=== PATIENT | male | born 1970 | race Caucasian/White ===

== ENCOUNTER 2019-09-18 23:11 | Emergency (ER) | payer MEDICAID ==
[~2019-09-18] VITALS: Ht 180.3 cm; Wt 61.0 kg
[2019-09-18 23:28] VITALS: BP 135/84
[2019-09-19 00:10] LABS: BASOPHILS # (AUTO) 0.06 x10^3/uL (0-0.1); BASOPHILS % (AUTO) 1 % (0-1); EOSINOPHILS # (AUTO) 0.19 x10^3/uL (0-0.4); EOSINOPHILS % (AUTO) 2 % (1-7); LYMPHOCYTES # (AUTO) 2.35 x10^3/uL (1-3.4); LYMPHOCYTES % (AUTO) 28 % (22-44); MD NO; MEAN CORPUSCULAR HEMOGLOBIN 29.4 pg (27.5-34.5); MEAN CORPUSCULAR HGB CONC 33.3 g/dL (33.2-36.2); MEAN CORPUSCULAR VOLUME 88.1 fL (81-97); MEAN PLATELET VOLUME 7.6 fL (7.4-10.4); MONOCYTES % (AUTO) 10 % (2-9); NEUTROPHILS # (AUTO) 5.04 x10^3/uL (1.8-6.8); NEUTROPHILS % (AUTO) 60 % (42-75); PLATELET COUNT 331 x10^3/uL (130-400); RED BLOOD COUNT 4.49 x10^6/uL (4.38-5.82); RED CELL DISTRIBUTION WIDTH 14.8 % (9.4-14.8)
[2019-09-19 00:15] LABS: ALANINE AMINOTRANSFERASE 36 U/L (12-78); ALBUMIN 3.3 g/dL (3.4-5.0); ANION GAP 4 mmol/L (5-15); CALCIUM 8.4 mg/dL (8.5-10.1); CHLORIDE 106 mmol/L (98-107); CREATININE 1.04 mg/dL (0.7-1.3); SALICYLATE LEVEL 3.1 mg/dL (2.8-20.0)
[2019-09-19 00:17] LABS: ALKALINE PHOSPHATASE 72 U/L (45-117); BILIRUBIN,TOTAL 0.2 mg/dL (0.2-1.0); TOTAL PROTEIN 6.4 g/dL (6.4-8.2)
[2019-09-19 02:11] LABS: AMPHETAMINE SCREEN, URINE Negative (Negative); BARBITURATE SCREEN, URINE Negative (Negative); BENZODIAZEPINE SCREEN, URINE Negative (Negative); CANNABINOID SCREEN, URINE Positive (Negative); COCAINE SCREEN, URINE Negative (Negative); METHADONE SCREEN, URINE Negative (Negative); OPIATE SCREEN, URINE Negative (Negative)
== END 2019-09-19 02:22 | disposition home or self-care (01) ==
LOC: ED 09-19 02:00
DX: F20.0 Paranoid schizophrenia (principal); F15.10 Other stimulant abuse, uncomplicated; F17.200 Nicotine dependence, unspecified, uncomplicated
CPT/HCPCS: 36415; 80053; 80307; 85025; 99283

== ENCOUNTER → 2019-11-23 | Emergency (ER) | payer MEDICAID ==
[~2019-11-23] VITALS: Ht 177.8 cm; Wt 66.0 kg
--- NOTE | 2019-11-23 19:29 | NUR ---
THIS IS A 49 YO MALE BIB [facility]UAN MIGU[facility] FOR HAVING AUDITORY HALLUCINATIONS, PATIENT STATED "PEOPLE WERE TALKING SHIT ABOUT ME THERE AND IT MADE ME FEEL LIKE I NEED TO HURT SOMEONE". PATIENT HAS HX SCHIZOPHRENIA, NOT CURRENTLY TAKING MEDICATIONS. PATIENT WAS CALM AND COOPERATIVE WITH [facility] AND [employer], NOT CURRENTLY ON A LEGAL HOLD. VSMartha, JAMES AT THIS TIME. PATIENT IN LINE OF SIGHT OF THIS RN FOR SAFETY. DENIES SI, DIRECTED HI TOWARDS "THE PEOPLE TALKING SHIT AT THE HALF-WAY". CALL LIGHT IN REACH.
--- NOTE | 2019-11-23 19:35 | NUR ---
LAST METH USE 2 DAYS AGO, MARIJUANA USE 1 DAY AGO.
--- NOTE | 2019-11-23 19:59 | NUR ---
UA COLLECTED AND SENT TO LAB. PATIENT MOVED TO ROOM 2 WITH BELONGINGS FOR SAFETY.
--- NOTE | 2019-11-23 20:03 | NUR ---
REPORT GIVEN TO JOSÉ LUIS OLSON. PLAN OF CARE DISCUSSED
[2019-11-23 20:15] LABS: BASOPHILS # (AUTO) 0.05 x10^3/uL (0-0.1); BASOPHILS % (AUTO) 1 % (0-1); EOSINOPHILS # (AUTO) 0.15 x10^3/uL (0-0.4); EOSINOPHILS % (AUTO) 2 % (1-7); LYMPHOCYTES # (AUTO) 1.64 x10^3/uL (1-3.4); LYMPHOCYTES % (AUTO) 25 % (22-44); MD NO; MEAN CORPUSCULAR HEMOGLOBIN 29.4 pg (27.5-34.5); MEAN CORPUSCULAR HGB CONC 33.2 g/dL (33.2-36.2); MEAN CORPUSCULAR VOLUME 88.5 fL (81-97); MEAN PLATELET VOLUME 7.8 fL (7.4-10.4); MONOCYTES # (AUTO) 0.54 x10^3/uL (0.2-0.8); MONOCYTES % (AUTO) 8 % (2-9); NEUTROPHILS # (AUTO) 4.11 x10^3/uL (1.8-6.8); NEUTROPHILS % (AUTO) 63 % (42-75); PLATELET COUNT 288 x10^3/uL (130-400); RED BLOOD COUNT 4.49 x10^6/uL (4.38-5.82); RED CELL DISTRIBUTION WIDTH 13.4 % (9.4-14.8)
[2019-11-23 20:18] LABS: AMPHETAMINE SCREEN, URINE Positive (Negative); BARBITURATE SCREEN, URINE Negative (Negative); BENZODIAZEPINE SCREEN, URINE Negative (Negative); CANNABINOID SCREEN, URINE Positive (Negative); COCAINE SCREEN, URINE Negative (Negative); METHADONE SCREEN, URINE Negative (Negative); OPIATE SCREEN, URINE Negative (Negative)
--- NOTE | 2019-11-23 20:18 | NUR ---
PT PLACED IN GOWN. 3 BAGS OF BELONGINGS SECURED. ROOM RECURED AND CALL LIGHT IN REACH. SITTER IN VIEW OF PT.
[2019-11-23 20:22] LABS: ALBUMIN 3.3 g/dL (3.4-5.0); ANION GAP 5 mmol/L (5-15); CALCIUM 8.5 mg/dL (8.5-10.1); CHLORIDE 106 mmol/L (98-107)
[2019-11-23 20:23] LABS: CREATININE 1.03 mg/dL (0.7-1.3); SALICYLATE LEVEL 1.8 mg/dL (2.8-20.0)
--- NOTE | 2019-11-23 20:40 | NUR ---
PT EATING FOOD, CALM AND COOPERATIVE. SITTER OUTSIDE ROOM, ROOM SECURE.
--- NOTE | 2019-11-23 21:24 | NUR ---
THROUGHPUT RN: CALLED [facility], WILL CALL BACK WITH ADMIT DECISION.
--- NOTE | 2019-11-23 21:40 | NUR ---
NO CHANGE IN ASSESSMENT, PT RESTING, ATE FOOD, PO FLUIDS. CALM, COOPERATIVE, SITTER IN LINE OF SITE. SAFETY CHECKS UPDATED. WILL CONTINUE TO MONITOR.
--- NOTE | 2019-11-23 22:15 | NUR ---
THROUGHPUT RN: [facility] WILL ACCEPT PT IF STILL HERE AT 7AM.
--- NOTE | 2019-11-23 22:24 | NUR ---
THROUGHPUT RN: PACKET FAXED TO, [facility].
--- NOTE | 2019-11-23 22:39 | NUR ---
ELVIN RN: [facility] CALLED, DOES NOT HAVE ANY AVAILABLE BEDS.
--- NOTE | 2019-11-23 22:42 | NUR ---
NO CHANGE IN ASSESSMENT, RESTING, CALM, COOPERATIVE. NEEDS MET. SITTER IN LINE OF SITE.
--- NOTE | 2019-11-23 22:48 | NUR ---
Aristeo at [facility]: rejects Alexander Arce.
--- NOTE | 2019-11-24 01:12 | NUR ---
2342: SLEEPING, RR EQUAL AND UNLABORED. SITTER IN LINE OF SITE.
--- NOTE | 2019-11-24 01:35 | NUR ---
PT SLEEPING, RR EQUAL AND UNLABORED. ROOM SECURE, SITTER IN LINE OF SITE. ALL NEEDS MET.
--- NOTE | 2019-11-24 02:48 | NUR ---
PT SLEEPING, SITTER IN LINE OF SITE. ROOM SAFETY UPDATED. NEEDS MET. WILL CONTINUE TO MONITOR.
--- NOTE | 2019-11-24 03:55 | NUR ---
PT SLEEPING, WAKES UP WITH VERBAL COMMUNICATION. CALM, COOPERATIVE. VS UPDATED/STABLE. PROVIDED WATER/SNACKS/BATHROOM. SITTER IN LINE OF SITE. ROOM SAFETY UPDATED. WILL CONTINUE TO MONITOR.
--- NOTE | 2019-11-24 05:35 | NUR ---
SLEEPING, RR EQUAL AND UNLABORED. SITTER WITHIN LINE OF SITE. ROOM SAFETY UPDATED. WILL CONTINUE TO MONITOR.
--- NOTE | 2019-11-24 06:53 | NUR ---
REPORT TO MINH ORDONEZ
--- NOTE | 2019-11-24 06:56 | NUR ---
REPORT FROM WHITNEY STEARNS
--- NOTE | 2019-11-24 07:58 | NUR ---
THROUGHPUT RN: SPOKE W/ JOSÉ LUIS BROWN AT [facility] WHO STATES SHE WILL LOOK AT PT AGAIN THIS AM AND MAKE A DECISION FOR ADMISSION/DECLINATION.
[2019-11-24 08:15] VITALS: BP 117/61
--- NOTE | 2019-11-24 08:17 | NUR ---
PT GIVEN MEAL TRAY. PT STATES HE IS NOT SUICIDAL. JUST HEARS VOICES
--- NOTE | 2019-11-24 08:55 | NUR ---
THROUGHPUT RN: CALLED AND SPOKE W/ CLAUDY AT [facility] WHO STATES THEY REMAIN AT FULL CAPACITY. REQUESTING RE-FAX OF PACKET. PACKET RE-FAXED.
--- NOTE | 2019-11-24 09:34 | NUR ---
SELVIN ORDONEZ SPOKE W PT.
--- NOTE | 2019-11-24 11:21 | NUR ---
REPORT TO [facility]. PT READY FOR TRANSFER
== END ==
LOC: ED 21:10
DX: F15.10 Other stimulant abuse, uncomplicated (principal); F32.9 Major depressive disorder, single episode, unspecified; F12.10 Cannabis abuse, uncomplicated; F10.20 Alcohol dependence, uncomplicated; R45.850 Homicidal ideations; R44.0 Auditory hallucinations; Y90.0 Blood alcohol level of less than 20 mg/100 ml
CPT/HCPCS: 36415; 80048; 80307; 82040; 85025; 99283; 99284

== ENCOUNTER 2020-05-30 00:26 | Emergency (ER) | payer MEDICAID ==
[~2020-05-30] VITALS: Ht 177.8 cm; Wt 65.0 kg
[~2020-05-30 00:26] MED LIST: CLON0.1T22 PO; DIPH50CA PO; MIRT-34 PO; NICO-587 TD; PALI3TAB11 PO
--- NOTE | 2020-05-30 00:45 | NUR ---
Patient BIBA c/o SI and auditory hallucinations. Patient has a hx of schizophrenia and PTSD and is not on medications. Patient was brought in on a legal hold by JEAN PIERRE. Patient stated he wanted to kill himself by shooting himself in the head with a firearm or jump into traffic if he could not find a firearm. Patient is calm and cooperative and in NAD. Respirations even and unlabored. Room secured, belongings locked in cabinet. Sitter outside. Urine collected and sent to lab.
[2020-05-30 01:06] LABS: BASOPHILS % (AUTO) 1 % (0-1); EOSINOPHILS % (AUTO) 1 % (1-7); LYMPHOCYTES % (AUTO) 11 % (22-44); MEAN CORPUSCULAR HGB CONC 34.1 g/dL (33.2-36.2); MEAN PLATELET VOLUME 6.9 fL (7.4-10.4); MONOCYTES % (AUTO) 4 % (2-9); NEUTROPHILS % (AUTO) 83 % (42-75); PLATELET COUNT 306 x10^3/uL (130-400); RED BLOOD COUNT 4.67 x10^6/uL (4.38-5.82); RED CELL DISTRIBUTION WIDTH 14.1 % (9.4-14.8)
[2020-05-30 01:07] LABS: MD NO
[2020-05-30 01:17] LABS: ALBUMIN 3.6 g/dL (3.4-5.0); ANION GAP 7 mmol/L (5-15); CALCIUM 8.2 mg/dL (8.5-10.1); CHLORIDE 106 mmol/L (98-107); SALICYLATE LEVEL 2.6 mg/dL (2.8-20.0)
[2020-05-30 01:28] LABS: ALANINE AMINOTRANSFERASE 24 U/L (12-78); ALKALINE PHOSPHATASE 79 U/L (45-117); BILIRUBIN,TOTAL 0.3 mg/dL (0.2-1.0); CREATININE 0.99 mg/dL (0.7-1.3); TOTAL PROTEIN 6.9 g/dL (6.4-8.2)
--- NOTE | 2020-05-30 01:42 | NUR ---
TASK RN: PT RESTING ON YOSELYN NADN, PROVIDED SNACKS AND WATER, STILL UNABLE TO PROVIDE UA AT THIS TIME.
--- NOTE | 2020-05-30 02:40 | NUR ---
BEDSIDE REPORT RECEIVED FROM RUBEN RN, PT CARE TRANSFERRED AT THIS TIME. PT MOVED TO ROOM 1, THIS RN'S ASSIGNMENT, AND PLACED ON HOSPITAL BED, SITTER IN LINE OF SIGHT, ROOM SECURED. MIRTHA.
--- NOTE | 2020-05-30 03:10 | NUR ---
pt resting on hospital bed, nad, appears comfortable, eyes closed, lights off for comfort, even and unlabored repsirations, sitter in line of sight, room secured, wctm. L2K
[2020-05-30 03:14] LABS: AMPHETAMINE SCREEN, URINE Negative (Negative); BARBITURATE SCREEN, URINE Negative (Negative); BENZODIAZEPINE SCREEN, URINE Negative (Negative); CANNABINOID SCREEN, URINE Positive (Negative); COCAINE SCREEN, URINE Negative (Negative); METHADONE SCREEN, URINE Negative (Negative); OPIATE SCREEN, URINE Negative (Negative)
--- NOTE | 2020-05-30 04:38 | NUR ---
pt resting on hospital bed, nad, appears comfortable, room secured, sitter in line of sight, no other changes in condition, meal tray ordered, wctm. L2K
--- NOTE | 2020-05-30 05:29 | NUR ---
M1A1 TANK CREWMAN: PACKET FAXED TO [facility], [facility], [facility], AND [facility]. AWAITING CONFIRMATION FAX. [facility] UNTIL AT LEAST 11 AM.
--- NOTE | 2020-05-30 05:45 | NUR ---
Patricia from [facility] states they can only offer self pay options to patient.
--- NOTE | 2020-05-30 06:39 | NUR ---
pt resting on luis, kelvin, no change in condition, sitter in line of sight, room secured. wctm.
--- NOTE | 2020-05-30 06:40 | NUR ---
bedside report to Katie ORDONEZ, pt care transferred at this time.
--- NOTE | 2020-05-30 07:03 | NUR ---
BEDSIDE REPORT RECEIEVED FROM JOSÉ LUIS PORTILLO FOR TRANSFER OF PATIENT CARE. PATIENT RESTING IN BED WITH EYES CLOSED, RESP EVEN AND UNLABORED, SUICIDE PRECAUTIONS IN PLACE, SITTER IN DOORWAY.
--- NOTE | 2020-05-30 08:04 | NUR ---
PATIENT RESTING IN GURNEY, EYES CLOSED, RESP EVEN AND UNLABORED, SUICIDE PRECAUTIONS IN PLACE, SITTER IN DOORWAY.
--- NOTE | 2020-05-30 08:17 | NUR ---
BREAKFAST TRAY PROVIDED.
[2020-05-30 08:24] VITALS: BP 119/85
--- NOTE | 2020-05-30 09:15 | NUR ---
PATIENT STILL ENDORSING SI, STATES HIS PLAN IS TO "SHOOT MYSELF IN THE HEAD WITH A GUN." JAMES, SUICIDE PRECAUTIONS IN PLACE, SITTER IN DOORWAY.
--- NOTE | 2020-05-30 10:32 | NUR ---
PATIENT RESTING IN GURNEY WITH EYES CLOSED, RESP EVEN AND UNLABORED, SUICIDE PRECAUTIONS IN PLACE, SITTER IN LINE OF SIGHT, FREQUENT ROUNDING IN PLACE.
--- NOTE | 2020-05-30 11:23 | NUR ---
LUNCH TRAY ORDERED.
--- NOTE | 2020-05-30 11:57 | NUR ---
COVID SWAB COLLECTED AND WALKED TO LAB.
--- NOTE | 2020-05-30 12:20 | NUR ---
LUNCH TRAY PROVIDED TO PATIENT.
--- NOTE | 2020-05-30 12:53 | NUR ---
REPORT GIVEN TO JOSÉ LUIS ELIZABETH ON [facility] FOR TRANSFER OF PATIENT CARE.
--- NOTE | 2020-05-30 13:06 | NUR ---
PATIENT TRANSFERRED TO [facility] VIA WHEELCHAIR WITH HUMAN SERVICES PROFESSIONAL AND ALL PATIENT BELONGINGS TAKEN TO FLOOR.
== END 2020-05-30 13:07 ==
LOC: ED 01:18
DX: F12.10 Cannabis abuse, uncomplicated (principal); Z20.822 Contact with and (suspected) exposure to COVID-19; F32.1 Major depressive disorder, single episode, moderate; F20.9 Schizophrenia, unspecified; M54.5 Low back pain; Z72.9 Problem related to lifestyle, unspecified
CPT/HCPCS: 36415; 80053; 80143; 80179; 80307; 80320; 84443; 85025; 87426; 99285; G0480

== ENCOUNTER 2020-05-30 11:58 | Inpatient (IN) | payer MEDICAID ==
[~2020-05-30] VITALS: Ht 177.8 cm; Wt 60.7 kg
[2020-05-30] MEDS ORDERED: ONDANSETRON ODT 4 MG PO PRN (12:30)
[2020-05-30] MEDS ORDERED: NICOTINE 14MG/24 HR PATCH.TD24 TD SCH (12:30)
[2020-05-30] MEDS ORDERED: DOCUSATE 100 MG CAPSULE PO PRN (13:00)
[2020-05-30] MEDS ORDERED: POLYETHYLENE GLYCOL 17 GM PACKET PO PRN (13:00)
[2020-05-30 13:38] VITALS: BP 135/73
[2020-05-30 19:44] VITALS: BP 128/83
[2020-05-30 19:51] LABS: MICROSCOPIC NOT IND
[2020-05-30] MEDS: MIRTAZAPINE 15 MG TABLET PO SCH (20:10)
[2020-05-30] MEDS: DIPHENHYDRAMINE 50 MG CAPSULE PO PRN (20:10)
[2020-05-30] MEDS: ACETAMINOPHEN 325 MG TABLET PO PRN (20:10)
[2020-05-31 06:20] LABS: FREE T4 (FREE THYROXINE) 1.24 ng/dL (0.76-1.46); LDL/HDL RATIO 3.4 (0.5-3.0)
[2020-05-31] MEDS: NICOTINE 14MG/24 HR PATCH.TD24 TD SCH (08:11)
[2020-05-31] MEDS ORDERED: PALIPERIDONE 3 MG TAB.ER.24 PO SCH (09:00)
[2020-05-31 11:43] VITALS: BP 122/80
[2020-05-31] MEDS: DIPHENHYDRAMINE 50 MG CAPSULE PO PRN (18:15)
[2020-05-31 19:00] VITALS: BP 121/78
[2020-05-31] MEDS: MIRTAZAPINE 15 MG TABLET PO SCH (20:50)
[2020-06-01] MEDS: NICOTINE 14MG/24 HR PATCH.TD24 TD SCH (07:44)
[2020-06-01] MEDS: PALIPERIDONE 3 MG TAB.ER.24 PO SCH (07:44)
[2020-06-01 07:47] VITALS: BP 113/83
[2020-06-01] MEDS ORDERED: LORazepam 1MG TABLET ONE ×2 (14:07→14:10)
[2020-06-01] MEDS ORDERED: HALOPERIDOL 5 MG TABLET ONE (14:08)
[2020-06-01] MEDS: DIPHENHYDRAMINE 50 MG CAPSULE PO PRN (14:14)
[2020-06-01] MEDS: HALOPERIDOL 5 MG TABLET PO PRN (14:14)
[2020-06-01] MEDS ORDERED: LORazepam 1MG TABLET PO ONE (14:30)
[2020-06-01] MEDS: MIRTAZAPINE 15 MG TABLET PO SCH (21:00)
[2020-06-02 07:44] VITALS: BP 107/75
[2020-06-02] MEDS: NICOTINE 14MG/24 HR PATCH.TD24 TD SCH (08:20)
[2020-06-02] MEDS: PALIPERIDONE 3 MG TAB.ER.24 PO SCH (08:20)
[2020-06-02] MEDS: HALOPERIDOL 5 MG TABLET PO PRN ×2 (12:50→19:26)
[2020-06-02] MEDS ORDERED: ZIPRASIDONE 40MG CAPSULE ONE (15:51)
[2020-06-02] MEDS: ZIPRASIDONE 40MG CAPSULE PO SCH ×2 (16:51→20:24)
[2020-06-02 20:04] VITALS: BP 130/80
[2020-06-02] MEDS: MIRTAZAPINE 15 MG TABLET PO SCH (20:24)
[2020-06-02] MEDS ORDERED: ZIPRASIDONE 40MG CAPSULE PO SCH (21:00)
[2020-06-02] MEDS: CALCIUM CARBONATE 500 MG TAB.CHEW PO PRN (23:04)
[2020-06-03 07:51] VITALS: BP 113/72
[2020-06-03] MEDS: NICOTINE 14MG/24 HR PATCH.TD24 TD SCH (08:27)
[2020-06-03] MEDS: ZIPRASIDONE 40MG CAPSULE PO SCH (08:28)
[2020-06-03] MEDS ORDERED: PALIPERIDONE 3 MG TAB.ER.24 PO SCH (09:00)
[2020-06-03] MEDS: HALOPERIDOL 5 MG TABLET PO PRN ×2 (10:04→17:27)
[2020-06-03 19:30] VITALS: BP 115/70
[2020-06-03] MEDS: MIRTAZAPINE 15 MG TABLET PO SCH (20:26)
[2020-06-03] MEDS: ZIPRASIDONE 20MG CAPSULE PO SCH (20:26)
[2020-06-04 07:32] VITALS: BP 118/81
[2020-06-04] MEDS: NICOTINE 14MG/24 HR PATCH.TD24 TD SCH (08:37)
[2020-06-04] MEDS: ZIPRASIDONE 20MG CAPSULE PO SCH (08:38)
[2020-06-04] MEDS: HALOPERIDOL 5 MG TABLET PO PRN ×2 (14:35→23:31)
[2020-06-04 19:30] VITALS: BP 121/74
[2020-06-04] MEDS: ZIPRASIDONE 40MG CAPSULE PO SCH (20:24)
[2020-06-04] MEDS: MIRTAZAPINE 15 MG TABLET PO SCH (20:24)
[2020-06-04] MEDS: CALCIUM CARBONATE 500 MG TAB.CHEW PO PRN (21:53)
[2020-06-04] MEDS: DIPHENHYDRAMINE 50 MG CAPSULE PO PRN (23:34)
[2020-06-05 08:01] VITALS: BP 108/73
[2020-06-05] MEDS: ZIPRASIDONE 40MG CAPSULE PO SCH ×2 (08:02→20:18)
[2020-06-05] MEDS: HALOPERIDOL 5 MG TABLET PO PRN (08:02)
[2020-06-05] MEDS: NICOTINE 14MG/24 HR PATCH.TD24 TD SCH (08:03)
[2020-06-05 19:23] VITALS: BP 123/77
[2020-06-05] MEDS: ACETAMINOPHEN 325 MG TABLET PO PRN (19:26)
[2020-06-05] MEDS: MIRTAZAPINE 15 MG TABLET PO SCH (20:18)
[2020-06-06 07:37] VITALS: BP 110/73
[2020-06-06] MEDS: ZIPRASIDONE 40MG CAPSULE PO SCH ×2 (08:48→20:22)
[2020-06-06] MEDS: ACETAMINOPHEN 325 MG TABLET PO PRN ×3 (08:49→19:19)
[2020-06-06] MEDS: NICOTINE 14MG/24 HR PATCH.TD24 TD SCH (08:50)
[2020-06-06] MEDS: HALOPERIDOL 5 MG TABLET PO PRN ×2 (12:37→19:19)
[2020-06-06] MEDS ORDERED: MIRT-34 PO (15:23)
[2020-06-06] MEDS ORDERED: ZIPR40CA2 PO (15:23)
[2020-06-06] MEDS ORDERED: NICO-486 TD (15:23)
[2020-06-06] MEDS ORDERED: CLON0.1T22 PO (15:23)
[2020-06-06 19:49] VITALS: BP 108/66
[2020-06-06] MEDS: MIRTAZAPINE 15 MG TABLET PO SCH (20:22)
[2020-06-07] MEDS: ZIPRASIDONE 40MG CAPSULE PO SCH (09:23)
[2020-06-07] MEDS: NICOTINE 14MG/24 HR PATCH.TD24 TD SCH (09:23)
== END 2020-06-07 10:15 | disposition home or self-care (01) | DRG 750 ==
LOC: 3E 13:09
PROVIDERS: ADMIT Psychiatry & Neurology Psychosomatic Medicine; ATTEND Psychiatry & Neurology Psychosomatic Medicine
DX: F20.0 Paranoid schizophrenia (principal); F12.10 Cannabis abuse, uncomplicated; F15.20 Other stimulant dependence, uncomplicated; F43.10 Post-traumatic stress disorder, unspecified; Z79.899 Other long term (current) drug therapy; Z62.810 Personal history of physical and sexual abuse in childhood; Z88.0 Allergy status to penicillin; F32.9 Major depressive disorder, single episode, unspecified; D72.829 Elevated white blood cell count, unspecified; R07.89 Other chest pain; Z59.0 Homelessness; F17.210 Nicotine dependence, cigarettes, uncomplicated; Z82.5 Family history of asthma and other chronic lower respiratory diseases
CPT/HCPCS: 36415; 71045; 80053; 80061; 80143; 80179; 80307; 80320; 81003; 84439; 84443; 85025; 87426; 87806; 93005; 99285; G0475; G0480

== ENCOUNTER 2020-08-04 00:34 | Emergency (ER) | payer MEDICAID ==
[~2020-08-04] VITALS: Ht 177.8 cm; Wt 68.0 kg
[~2020-08-04 00:34] MED LIST changes: +NICO-486 TD; +ZIPR40CA2 PO
[2020-08-04 00:41] VITALS: BP 130/90
--- NOTE | 2020-08-04 01:36 | NUR ---
PT AMBULATED TO ROOM, AND DURING INTERVIEW OF PT, THE PT STATES THAT HE IS SUICIDAL OF TODAY. PT DOES NOT STATE HE HAS A PLAN. PT ASKED TO DISROBE AND TO REMOVE ALL VALUABLES AND PLACE IN BAG, AND 3 BAGS OF BELONGINGS PLACED IN THE LOCK BOX UNDER LOCK AND CLAROS AND ALL LABELED WITH PTS LABELS. PA TO BEDSIDE TO SPEAK TO PT.
--- NOTE | 2020-08-04 01:55 | NUR ---
PT PROVIDED WATER AND A URINAL TO COLLECT URINE SAMPLE FOR MD ORDERS.
--- NOTE | 2020-08-04 02:18 | NUR ---
Raya RN: Blood drawn by analytical lab analyst
--- NOTE | 2020-08-04 02:21 | NUR ---
patient unable to give urine sample at this time.
[2020-08-04 02:22] LABS: BASOPHILS % (AUTO) 1 % (0-1); EOSINOPHILS % (AUTO) 2 % (1-7); LYMPHOCYTES % (AUTO) 27 % (22-44); MEAN CORPUSCULAR HEMOGLOBIN 29.3 pg (27.5-34.5); MEAN CORPUSCULAR HGB CONC 33.5 g/dL (33.2-36.2); MEAN PLATELET VOLUME 7.5 fL (7.4-10.4); MONOCYTES % (AUTO) 9 % (2-9); NEUTROPHILS % (AUTO) 61 % (42-75); PLATELET COUNT 301 x10^3/uL (130-400); RED BLOOD COUNT 4.81 x10^6/uL (4.38-5.82); RED CELL DISTRIBUTION WIDTH 13.3 % (9.4-14.8)
[2020-08-04 02:25] LABS: MD NO
[2020-08-04 02:29] LABS: ALANINE AMINOTRANSFERASE 27 U/L (12-78); ALBUMIN 3.6 g/dL (3.4-5.0); ANION GAP 8 mmol/L (5-15); CALCIUM 8.2 mg/dL (8.5-10.1); CHLORIDE 106 mmol/L (98-107); CREATININE 0.95 mg/dL (0.7-1.3); SALICYLATE LEVEL 3.7 mg/dL (2.8-20.0)
[2020-08-04 02:31] LABS: ALKALINE PHOSPHATASE 83 U/L (45-117); BILIRUBIN,TOTAL 0.2 mg/dL (0.2-1.0); TOTAL PROTEIN 6.8 g/dL (6.4-8.2)
[2020-08-04] MEDS ORDERED: ZIPRASIDONE 40MG CAPSULE PO ONE (03:00)
[2020-08-04 03:07] LABS: MICROSCOPIC NOT IND
--- NOTE | 2020-08-04 03:07 | NUR ---
PT HAS PROVIDED A URINE SAMPLE AND IT WAS LABELED AND SENT TO LAB. PT ALSO PROVIDED HIS MEDICATION VIA MD ORDER, AND RECEIVED THE MEDS FROM PHARMACY. PT TOOK THEM WITHOUT ISSUE. PT RESTING COMFORTABLY IN BED, WATCHING T.V. PT ADVISED WE WILL WAIT FOR ALL RESULTS TO COME BACK AND THE MD'S WILL BE BACK TO TALK TO HIM.
[2020-08-04 03:23] LABS: AMPHETAMINE SCREEN, URINE Negative (Negative); BARBITURATE SCREEN, URINE Negative (Negative); BENZODIAZEPINE SCREEN, URINE Negative (Negative); CANNABINOID SCREEN, URINE Positive (Negative); COCAINE SCREEN, URINE Negative (Negative); METHADONE SCREEN, URINE Negative (Negative); OPIATE SCREEN, URINE Negative (Negative)
--- NOTE | 2020-08-04 04:41 | NUR ---
PT SLEEPING AND AWAKENS EASILY. NO ACUTE DISTRESS, AND PT TO BE D/C'D PER PT ORDER.
--- NOTE | 2020-08-04 05:01 | NUR ---
ATTEMPTED TO WALK PT TO GET THE D/C GOING AND PT REMAINS GROGGY AND SAYS HE'S NOT FINE. PT ADVISED THAT THE MD AND PA WERE BOTH IN TO SEE THE PT AND ASSESED AND CLEARED HIM, AND PROVIDED A MEDICATION DOSE HERE IN THE ER AND WILL BE PROVIDING PRESCRIPTION FOR PT TO BE BACK ON HIS SCHIZOPHRENIA MEDS. PT ADVISED TO BEGIN WAKING UP FOR D/C.
--- NOTE | 2020-08-04 05:27 | NUR ---
PT WOKE UP AND ALL OF HIS BELONGINGS AND CLOTHES BROUGHT TO HIM FROM THE LOCKER. PT V/U AND GOT DRESSED. F/U AND D/C INSTRUCTIONS GIVEN TO PT AND HE V/U. PT ALSO GIVEN PRESCRIPTIONS FOR HIMSELF AND ADVISED IT WOULD BE GOOD FOR HIM TO TAKE HIS MEDS. PT AMBULATED WITHOUT ISSUE OUT OF THE HOSPITAL.
== END 2020-08-04 05:30 | disposition home or self-care (01) ==
LOC: ED 02:14
DX: F32.0 Major depressive disorder, single episode, mild (principal); F20.9 Schizophrenia, unspecified; F12.10 Cannabis abuse, uncomplicated; F15.10 Other stimulant abuse, uncomplicated; Z72.9 Problem related to lifestyle, unspecified
CPT/HCPCS: 36415; 80053; 80299; 80307; 80320; 80329; 81003; 85025; 99283; G0480